=== PATIENT | male | born 1960 | race Caucasian/White ===

== ENCOUNTER → 2016-07-14 | Outpatient (CLI) | payer BC ==
[~2016-07-14] MED LIST: ASPI81TA2 PO; LISI-338 PO; OMEG300C PO; SIMV10TA3 PO
--- NOTE | 2016-07-14 09:33 | CARD ---
APPROVED REPORT EXAM: Two-dimensional and M-mode echocardiogram with Doppler and color Doppler. Other Information Quality : AverageHR: 66bpm Rhythm : NSR INDICATION [place] coronary artery calcium score greater than 400 RISK FACTORS Hypertension 2D DIMENSIONS RVDd2.9 (2.9-3.5cm)Left Atrium(2D)4.1 (1.6-4.0cm) IVSd0.8 (0.7-1.1cm)Aortic Root(2D)2.9 (2.0-3.7cm) LVDd4.8 (3.9-5.9cm)LVOT Diameter2.3 (1.8-2.4cm) PWd0.8 (0.7-1.1cm)LVDs3.4 (2.5-4.0cm) FS (%) 28.8 %SV58.3 ml LVEF(%)55.4 (>50%) Aortic Valve AoV Peak Benjamín.162.8cm/sAoV VTI38.3cm AO Peak GR.10.6mmHgLVOT Peak Benjamín.115.9cm/s AO Mean GR.6mmHgAVA (VMAX)3.04cm2 Mitral Valve MV E Mcrciftc077.0cm/sMV E Peak Gr.4mmHg MV DECEL [id number] A Ifxmthta18.8cm/s MV E Mean Gr.2mmHgE/A Ratio1.6 MV A [id number] Pulmonary Valve PV Peak Fnftscra44.2cm/s Tricuspid Valve TR P. Pnahdbhr138em/sTR Peak Gr.43mmHg Pulmonary Vein S1 Kzxqkrji42.3cm/sD2 Ncnuisad84.2cm/s PVa imolawlg12xkty LEFT VENTRICLE The left ventricle is normal size. There is normal left ventricular wall thickness. The left ventricu lar systolic function is normal and the ejection fraction is within normal range. The Ejection Fracti on is 55-60%. There is normal LV segmental wall motion. The left ventricular diastolic function and f illing is normal for age. RIGHT VENTRICLE The right ventricle is normal size. There is normal right ventricular wall thickness. The right ventr icular systolic function is normal. ATRIA The left atrium size is normal. The right atrium size is normal. The interatrial septum is intact wit h no evidence for an atrial septal defect or patent foramen ovale as noted on 2-D or Doppler imaging. AORTIC VALVE The aortic valve is moderately sclerotic. The aortic valve is trileaflet. Doppler and Color Flow reve aled no significant aortic regurgitation. There is no significant aortic valvular stenosis. MITRAL VALVE Mitral annular calcification is mild. The mitral valve leaflets are moderately thickened. There is no evidence of mitral valve prolapse. There is no mitral valve stenosis. Doppler and Color Flow reveale d no mitral valve regurgitation noted. TRICUSPID VALVE Doppler and Color Flow revealed mild tricuspid regurgitation. The pulmonary artery systolic pressure is estimated at 46 mmHg. There is mild pulmonary hypertension. PULMONIC VALVE The pulmonic valve is not well visualized. Doppler and Color Flow revealed no pulmonic valvular regur gitation. There is no pulmonic valvular stenosis. GREAT VESSELS The aortic root is normal in size. The ascending aorta is normal in size. The IVC is normal in size a nd collapses >50% with inspiration. PERICARDIAL EFFUSION There is no evidence of significant pericardial effusion. Critical Notification Critical Value: No <Conclusion> The left ventricular systolic function is normal and the ejection fraction is within normal range. Th e Ejection Fraction is 55-60%. There is normal LV segmental wall motion. Doppler and Color Flow revealed mild tricuspid regurgitation. The pulmonary artery systolic pressure is estimated at 46 mmHg. There is mild pulmonary hypertension. Technically difficult study
== END | disposition home or self-care (01) ==
LOC: ECHO 06:56
PROVIDERS: ATTEND Internal Medicine Cardiovascular Disease
DX: I07.1 Rheumatic tricuspid insufficiency (principal); I27.2 Other secondary pulmonary hypertension
CPT/HCPCS: 93306

== ENCOUNTER 2021-04-16 07:04 | Outpatient (CLI) | payer BC ==
[~2021-04-16] VITALS: Ht 172.7 cm; Wt 106.8 kg
[2021-04-16] VITALS (9 sets, daily range): BP systolic 100–151; BP diastolic 58–74
[~2021-04-16 07:04] MED LIST changes: +ASPI-630 PO; -ASPI81TA2 PO; -LISI-338 PO; +LISI5TAB15 PO; +MULT-445 PO; +SIMV10TA15 PO; -SIMV10TA3 PO
[2021-04-16] MEDS ORDERED: IODIXANOL 320 MG/ML 100 ML VIAL. ONE (07:40)
[2021-04-16] MEDS ORDERED: LIDOCAINE 1% PF 2 ML VIAL. ONE (07:41)
[2021-04-16 07:54] LABS: HEMATOCRIT 48.4 % (39.0-53.0); HEMOGLOBIN 16.7 g/dL (13.0-17.5); RED BLOOD COUNT 5.1 x10^6/uL (4.30-5.70); RED CELL DISTRIBUTION WIDTH 12.3 % (11.5-14.5); WHITE BLOOD COUNT 6.4 x10^3/uL (4.0-11.0)
[2021-04-16 08:06] LABS: PROTHROMBIN TIME PATIENT 14.8 SEC (11.7-14.0)
[2021-04-16] MEDS ORDERED: VERAPAMIL 5 MG/2 ML VIAL. ONE (08:15)
[2021-04-16] MEDS ORDERED: fentaNYL PF VIAL 100 MCG/2 ML VIAL ONE (08:15)
[2021-04-16] MEDS ORDERED: HEPARIN for IV BOLUS 10,000 UNIT/10 ML VIAL. ONE (08:15)
[2021-04-16] MEDS ORDERED: MIDAZOLAM HCL/PF 5 MG/5 ML VIAL. ONE (08:15)
[2021-04-16] MEDS ORDERED: NITROGLYCERIN 200 MCG/2 ML SYRINGE FOR CATH/VASC LAB. ONE ×2 (08:15→08:55)
[2021-04-16 08:21] LABS: CALCIUM 9.1 mg/dL (8.5-10.1); GFR 75.5
[2021-04-16] MEDS ORDERED: VERAPAMIL 5 MG/2 ML VIAL. IART ONE (09:00)
[2021-04-16] MEDS ORDERED: HEPARIN for IV BOLUS 10,000 UNIT/10 ML VIAL. IART ONE (09:00)
[2021-04-16] MEDS ORDERED: LIDOCAINE 1% PF 2 ML VIAL. INJ ONE (09:00)
[2021-04-16] MEDS ORDERED: fentaNYL PF VIAL 100 MCG/2 ML VIAL IV ONE (09:00)
[2021-04-16] MEDS ORDERED: NITROGLYCERIN 200 MCG/2 ML SYRINGE FOR CATH/VASC LAB. IART ONE (09:00)
[2021-04-16] MEDS ORDERED: IODIXANOL 320 MG/ML 100 ML VIAL. IART ONE (09:00)
[2021-04-16] MEDS ORDERED: MIDAZOLAM HCL/PF 5 MG/5 ML VIAL. IV ONE (09:00)
[2021-04-16] MEDS ORDERED: BIVALIRUDIN 250 MG VIAL. IV ONE (09:01)
--- NOTE | 2021-04-16 09:31 | PDOC ---
MODERATE SEDATION ASSESSMENT RISKS/ALTERNATIVES Risks/Alternatives Risks and alternatives of this type of sedation and procedure discussed with: RISK/ALTERNATIVES: Patient H & P ON CHART H & P H & P on chart and reviewed for co-morbid conditions and appropriate labs. H&P ON CHART: Yes STATUS PREG STATUS ASSESSED: N/A MEDS/ALLERGIES REVIEWED Meds/Allergies Reviewed Medications and Allergies including time and route of recently administered narcotics and sedatives. MEDS/ALLERGIES REVIEWED: Yes ASA RATING ASA RATING: II AIRWAY ASSESSMENT Airway Assessment Airway patency, oral function limitations, presence of caps, crowns, dentures, partials, and ability to extend neck assessed. AIRWAY ASSESSMENT: Yes MALLAMPATI SCORE MALLAMPATI SCORE: II PRE-SEDATION ASSESSMENT PRE-SEDATION ASSESSMENT: Yes SAUL DOMINGUEZ MD Apr 16, 2021 09:31
[2021-04-16] MEDS ORDERED: IV 1/2 NORMAL SALINE 1,000 ML IV SCH (09:45)
[2021-04-16] MEDS ORDERED: METO25TA4 PO (10:48)
--- NOTE | 2021-04-16 11:48 | NUR ---
Discharge Note: [place] Discharge instructions and discharge home medications reviewed with Patient and a copy given. All questions have been answered and understanding verbalized. The following instructions and handouts were given: radial site care, sedation, incision site care R radial site dry and intact. IV site will be dc'd by technician biological health following exam. Patient discharged to Home or Self Care with Spouse via Wheelchair CISCO RN Addendum: 04/16/21 at 1152 by KEVIN ASHLEY RN Amended: Links added.
--- NOTE | 2021-04-16 15:05 | CARD ---
MR#: [id number] Date of Study: 04/16/2021 Ordering Physician: SAUL LE, Referring Physician: SAUL LE, Tech: TIMOTEO LINARES APPROVED REPORT Technologist: TIMOTEO LINARES Nurse: Ave Stevenson RN Procedure(s) performed: Left heart catheterization, selective coronary angiography and left ventricul ography via right transradial approach MODERATE SEDATION TIME: 56 MINUTES FLUORO TIME: 7.7 MIN DOSE: 91 GYCM2 CONTRAST: 146CC VISI INDICATION The indication(s) include : Unstable angina. [facility] Clinical Frailty Scale [facility] Clinical Frailty Scale: Managing Well Heart Failure Heart Failure: No CASE TECHNIQUE IV conscious sedation was used throughout procedure with appropriate monitoring and was performed in the presence of a registered nurse who was an independent trained observer other than the physician p erforming the procedure. During this case, Fluoroscopy and low osmolar contrast were used for imaging . Specimen(s) Removed: No Estimated Blood loss: 15 cc's. PROCEDURE NARRATIVE After explaining the risks, benefits and alternative options, informed consent was obtained from miquel ent. Patient was brought to the cardiac Rn Provider Relations and right wrist was prepped and draped in the usual fashion after confirming a positive modified Davidson's test. Arterial access was obtained in the righ t radial artery and a 6 Congolese sheath was inserted. After initial attempts to engage the left and ri ght coronary arteries with 6 Cong[place]ese Duke were unsuccessful, these were engaged with 6 Congolese JL 3.5 and 6 Congolese JR4 catheters and selective angiography was performed. 6 Congolese pigtail catheter was us ed to perform left ventriculography. Patient tolerated the procedure well. Hemostasis was achieved using TR band. There were no immediate complications. The following findings were noted. FINDINGS 1. Hemodynamics: Left ventricular end-diastolic pressure of 18 mmHg. No pullback gradient across th e aortic valve. 2. Left ventriculography: Normal left ventricle systolic function with ejection fraction estimated at 60%. No significant mitral regurgitation seen. 3. Coronary angiography: a. The left main coronary artery arose from the left sinus of Valsalva, gave rise to the left anteri or descending and left circumflex arteries and did not show any significant stenosis. b. The left anterior descending artery showed 80 to 90% stenosis in the mid segment. c. The left circumflex artery showed 50% stenosis in the proximal segment. The first obtuse margina l branch which is a good caliber vessel showed 90% stenosis in the proximal segment. The second obtu se marginal branch which is a small to medium caliber vessel showed 50% stenosis in the midsegment. d. The right coronary artery was a large and dominant vessel arising from the right sinus of Valsalv a that showed 60 to 70% stenosis involving the mid to distal segment. The posterior descending arter y showed 90% stenosis in the proximal segment. Conclusion 1. Severe three-vessel coronary artery disease 2. Normal left ventricle systolic function with ejection fraction estimated at 60% Recommendations Cardiothoracic surgery team consultation for possible coronary artery bypass surgery Signed by : Salu Le, Electronically Approved : 04/16/2021 15:04:47
--- NOTE | 2021-04-16 15:10 | CARD ---
MR#: [id number] Date of Study: 04/16/2021 Ordering Physician: SAUL DOMINGUEZ, Referring Physician: SAUL DOMINGUEZ, Tech: Rosario Jauregui [facility] APPROVED REPORT EXAM: Two-dimensional and M-mode echocardiogram with Doppler and color Doppler. Other Information Quality : AverageHR: 60bpm Rhythm : NSR INDICATION Cardiac Disease: CAD RISK FACTORS Hypertension Obesity Hyperlipidemia 2D DIMENSIONS RVDd3.3 (2.9-3.5cm)Left Atrium(2D)4.1 (1.6-4.0cm) IVSd1.3 (0.7-1.1cm)Aortic Root(2D)3.6 (2.0-3.7cm) LVDd4.2 (3.9-5.9cm)LVOT Diameter2.3 (1.8-2.4cm) PWd1.3 (0.7-1.1cm)LVDs2.6 (2.5-4.0cm) FS (%) 37.1 %SV52.6 ml LVEF(%)67.5 (>50%) Aortic Valve AoV Peak Benjamín.212.6cm/sAoV VTI44.5cm AO Peak GR.18.1mmHgLVOT Peak Benjamín.116.9cm/s AO Mean GR.9mmHgAVA (VMAX)2.36cm2 Mitral Valve MV E Unucndfy63.3cm/sMV DECEL [id number] MV A Sucojbqv651.7cm/sE/A Ratio0.8 Pulmonary Valve PV Peak Vwgvohgi437.0cm/s Tricuspid Valve TR P. Bjvyfbst199sh/sTR Peak Gr.37mmHg LEFT VENTRICLE The left ventricle is normal size. There is mild concentric left ventricular hypertrophy. The left ve ntricular systolic function is normal. Estimated ejection fraction 60%. There is normal LV segmental wall motion. Transmitral Doppler flow pattern is Grade I-abnormal relaxation pattern. RIGHT VENTRICLE The right ventricle is normal size. There is normal right ventricular wall thickness. Systolic functi on is borderline reduced. ATRIA The left atrium size is normal. The right atrium size is normal. The interatrial septum is intact wit h no evidence for an atrial septal defect or patent foramen ovale as noted on 2-D or Doppler imaging. AORTIC VALVE The aortic valve is calcified but opens well. Doppler and Color Flow revealed no significant aortic r egurgitation. There is no significant aortic valvular stenosis. MITRAL VALVE The mitral valve is normal in structure and function. There is no evidence of mitral valve prolapse. There is no mitral valve stenosis. Doppler and Color Flow revealed no mitral valve regurgitation note d. TRICUSPID VALVE The tricuspid valve is normal in structure and function. Doppler and Color Flow revealed trace to mil d tricuspid regurgitation. Estimated PAP 40-42 mmHg. There is no tricuspid valve stenosis. PULMONIC VALVE The pulmonary valve is normal in structure and function. Doppler and Color Flow revealed no pulmonic valvular regurgitation. GREAT VESSELS The aortic root is normal in size. The ascending aorta is normal in size. The IVC is normal in size a nd collapses >50% with inspiration. PERICARDIAL EFFUSION There is no evidence of significant pericardial effusion. Critical Notification Critical Value: No <Conclusion> The left ventricular systolic function is normal. Estimated ejection fraction 60%. There is normal LV segmental wall motion. Transmitral Doppler flow pattern is Grade I-abnormal relaxation pattern. Trace to mild tricuspid regurgitation. Estimated PAP 40-42 mmHg. There is no evidence of significant pericardial effusion. Signed by : Saul Dominguez, Electronically Approved : 04/16/2021 15:10:08
[2021-04-16] MEDS ORDERED: METOPROLOL TART IMMED RELEASE 25 MG TABLET. PO SCH (21:00)
== END 2021-04-16 12:50 | disposition home or self-care (01) ==
LOC: CCL 07:04
PROVIDERS: ATTEND Internal Medicine Cardiovascular Disease
DX: I25.110 Atherosclerotic heart disease of native coronary artery with unstable angina pectoris (principal); I10 Essential (primary) hypertension; E78.00 Pure hypercholesterolemia, unspecified; Z79.82 Long term (current) use of aspirin; Z79.899 Other long term (current) drug therapy; Z98.890 Other specified postprocedural states; Z87.891 Personal history of nicotine dependence
CPT/HCPCS: 36415; 80048; 85027; 85610; 93306; 93458; 99152; 99153; C1769; C1894; J1644; J2250; J3010; J3490; Q9967; C8929